=== PATIENT | male | born 1945 | race Caucasian/White ===

== ENCOUNTER → 2020-05-26 15:24 | Outpatient (CLI) | payer MEDICARE, SELFPAY ==
--- NOTE | 2020-05-26 16:00 | MRI_ITS ---
STUDY: MRI THORACIC SPINE WITHOUT CONTRAST REASON FOR EXAM: Male, 74 years old. wedge compression fx s/p injury 04/08/20. Back pain TECHNIQUE: Standardized fat and water weighted pulse sequences were obtained in the sagittal and axial planes. COMPARISON: None. FINDINGS: Normal kyphosis of the thoracic spine. There is no substantial scoliosis. Acute moderate compression fracture of the T12 vertebral body without retropulsion into the spinal canal. T1-2, T2-3, T3-4, T4-5, T5-6, T6-7, T7-8, T8-9, T9-10, T10-11, T11-12: At T7/T8, there is a small central disc protrusion which produces mild spinal stenosis but no cord compression. Normal visualized thoracic cord. Normal conus medullaris that terminates at the T12.. The soft tissue structures are unremarkable. MRI/Spine Thoracic (Routine) IMPRESSION: Acute moderate compression fracture of T12 without retropulsion into the spinal canal. No cord compression. Electronically Signed: Dc Sharif MD at 8:26 EST Tel , Service support ,
--- NOTE | 2020-05-26 16:45 | MRI_ITS ---
STUDY: MRI LUMBAR SPINE WITHOUT CONTRAST REASON FOR EXAM: Male, 74 years old. Compression fracture, back pain, injury TECHNIQUE: Standardized fat and water weighted pulse sequences were obtained in the sagittal and axial planes. COMPARISON: None FINDINGS: T12-L1: Normal endplates. Normal disc height, hydration and morphology. Normal bilateral facet joints. Normal central canal and bilateral lateral recesses. Normal bilateral intervertebral neural foramina. Normal lumbar lordosis. Mild dextroscoliosis. Normal conus medullaris that terminates at the T12. Acute moderate compression fracture of the T12 vertebral body without retropulsion into the spinal canal. L1-2: Normal endplates. Normal disc height, hydration and morphology. Normal bilateral facet joints. Normal central canal and bilateral lateral recesses. Normal bilateral intervertebral neural foramina. L2-3: Normal endplates. Normal disc height, hydration and morphology. Normal bilateral facet joints. Normal central canal and bilateral lateral recesses. Normal bilateral intervertebral neural foramina. L3-4: Mild bilateral facet hypertrophy and ligament flavum hypertrophy. Mild broad disc protrusion produces mild spinal stenosis and mild bilateral neural foraminal stenosis. L4-5: Mild bilateral facet hypertrophy and ligament flavum hypertrophy. Mild broad disc protrusion produces mild spinal stenosis and mild bilateral neural foraminal stenosis. L5-S1: Normal endplates. Normal disc height, hydration and morphology. Normal bilateral facet joints. Normal central canal and bilateral lateral recesses. Normal bilateral intervertebral neural foramina. Normal visualized sacral ala. Moderate friction related edema in the posterior subcutaneous fat. MRI/Spine Lumbar (Routine) IMPRESSION: 1. Acute moderate compression fracture of T12 without retropulsion into the spinal canal. 2. Mild dextroscoliosis and mild degenerative disc disease as described above. Electronically Signed: Dc Sharif MD at 8:32 EST Tel , Service support ,
== END ==
LOC: MRI 15:27
PROVIDERS: PCP Nurse Practitioner Family; Referring Provider Orthopaedic Surgery; Visit Provider Orthopaedic Surgery
DX: S22.000A Wedge compression fracture of unspecified thoracic vertebra, initial encounter for closed fracture (principal); M47.26 Other spondylosis with radiculopathy, lumbar region
CPT/HCPCS: 72146; 72148

== ENCOUNTER 2020-08-10 09:23 | Outpatient (RCR) | payer MEDICARE, SELFPAY | END 2020-08-10 23:59 | LOC: IMMUN 09:23 | PROVIDERS: PCP Nurse Practitioner Family; Referring Provider Family Medicine; Visit Provider Family Medicine | DX: Z23 Encounter for immunization (principal) | CPT/HCPCS: 0011A; 0012A ==